=== PATIENT | female | born 1965 | race Two or more races ===

== ENCOUNTER 2024-07-29 02:20 | Emergency (ER) | payer MEDICAID, SELFPAY ==
[2024-07-29 02:27] VITALS: BP 133/74; PULSE 65; RESP 18; TEMP 36.5; O2SAT 97; BMI 26.4
--- NOTE | 2024-07-29 02:41 | PD.EDABDPN ---
ED Abdominal Pain RME/HPI General Chief Complaint: Abdominal Pain Stated complaint: EPIGASTRIC PAIN Time seen by provider: 07/29/24 02:31 Arrival date/time: 07/29/24 02:20 59-year-old female past medical history of cholecystectomy and gastritis presents emergency department complaining of epigastric burning pain and 1 episode of vomiting after eating sour cream last night. Patient denies any fever, chills, diarrhea, cough, shortness of breath, chest pain, or any other associated symptom. Source: patient Mode of arrival: ambulatory Limitations: no limitations Related Data Previous Rx's ?Medication ?Instructions ?Recorded pantoprazole 40 mg tablet,delayed 40 mg PO QDAY #30 tabs 05/29/24 release (Protonix) omeprazole 20 mg capsule,delayed 20 mg PO QDAY #30 caps 07/29/24 release ondansetron 4 mg disintegrating 4 mg PO Q8H PRN nausea and 07/29/24 tablet vomiting #10 tabs Allergies Allergy/AdvReac Type Severity Reaction Status Date / Time No Known Allergies Allergy Verified 05/29/24 05:33 Review of Systems Review of Systems Systems Reviewed: All systems reviewed, normal except as documented Constitutional Constitutional: Reports system reviewed and no additional complaints, except as documented, Denies body ache(s), Denies chills and Denies fever(s) Eyes Eyes: Reports system reviewed and no additional complaints, except as documented and Denies change in vision ENT Ears, Nose, Mouth, and Throat: Reports system reviewed and no additional complaints, except as documented, Denies disequilibrium, Denies dizziness, Denies sore throat and Denies vertigo Cardiovascular Cardiovascular: Reports system reviewed and no additional complaints, except as documented, Denies chest pain and Denies dyspnea Respiratory Respiratory: Reports system reviewed and no additional complaints, except as documented, Denies chest congestion, Denies cough and Denies dyspnea Gastrointestinal Gastrointestinal: Reports system reviewed and no additional complaints, except as documented, Reports abdominal pain, Reports nausea and Reports vomiting Musculoskeletal Musculoskeletal: Reports system reviewed and no additional complaints, except as documented, Denies abnormal gait and Denies arthralgias Integumentary/Breasts Skin/Breast: Reports system reviewed and no additional complaints, except as documented, Denies erythema, Denies rash and Denies wounds Neurologic Neurologic: Reports system reviewed and no additional complaints, except as documented, Denies abnormal gait, Denies disequilibrium, Denies dizziness and Denies vertigo Past Medical History Past Medical History NEUROLOGIC: Negative Neurological Disorders or Seizures CARDIAC: Positive Varicose Veins; Negative Cardiac Disorders, Congestive Heart Failure or Hypertension RESPIRATORY: Positive Pneumonia; Negative Chronic Obstructive Pulmonary Disease (COPD) or Asthma GASTROINTESTINAL: Positive Gastrointestinal Disorders and Gall Bladder Disease GENITOURINARY: Negative Genitourinary Disorders or Renal Disease REPRODUCTIVE: Positive Previous Pregnancies MUSCULOSKELETAL: Negative Musculoskeletal Disorders ENDOCRINE: Negative Endocrine Disorders, Diabetes Mellitus Type 1 or Diabetes Mellitus Type 2 HEMATOLOGIC: Positive Blood Disorders and Anemia; Negative Sickle Cell Disease OTHER HISTORY: Negative Hospitalization, Autoimmune Disease, Shingles, Blood Transfusions, Blood Transfusion Reaction, Anesthesia Reactions or Cancer Family History FAMILY HISTORY: Positive Family Gastrointestinal Problems and Family Surgery; Negative Family Psychiatric Problems, Family Respiratory Disorders, Family Cardiac Disorders, Family Cancer or Family Anesthesia Reaction Surgical History SURGICAL: Positive Tubal Ligation Social History SMOKING STATUS: Never smoker SECOND HAND EXPOSURE: No ED Exam General Limitations: Present no limitations General appearance: Present alert and in no apparent distress Head Head exam: Present atraumatic Eye Eye exam: Present normal appearance, PERRL and EOMI ENT ENT exam: Present normal exam, normal oropharynx and mucous membranes moist Neck Neck exam: Present normal inspection, full ROM and trachea midline Chest Chest inspection: Present normal inspection and symmetric chest wall rise Respiratory Respiratory exam: Present normal lung sounds bilaterally Cardiovascular Cardiovascular exam: Present regular rate, normal rhythm and normal heart sounds Abdominal Exam Abdominal exam: Present soft and normal bowel sounds; Absent distention, tenderness, guarding or tenderness at McBurney's Point Extremities Exam Extremities exam: Present normal inspection and full ROM Back Exam Back exam: Present normal inspection and full ROM Neurological Exam Neurological exam: Present alert, oriented X3 and CN II-XII intact Psychiatric Psychiatric exam: Present normal affect and normal mood Skin Skin exam: Present warm, dry, intact and normal color Course Quality Measures none Orders Category Date Time Status Famotidine [Pepcid] Med 07/29/24 02:40 Discontinued 20 mg PO X1 ONE Lidocaine 2% Viscous [Xylocaine 2% Viscous] Med 07/29/24 02:40 Discontinued 15 ml PO X1 ONE Ondansetron Odt [Zofran Odt] Med 07/29/24 03:22 Once 4 mg PO X1 ONE mg Hyd/Al Hyd/Skip Susp [Maalox Susp] Med 07/29/24 02:40 Discontinued 30 ml PO X1 ONE Vital Signs Vital signs: Vital Signs Temperature 97.7 F 07/29/24 02:27 Pulse Rate 65 07/29/24 02:27 Respiratory Rate 18 07/29/24 02:27 Blood Pressure 133/74 H 07/29/24 02:27 Pulse Oximetry (%) 97 07/29/24 02:27 Oxygen Delivery Method Room Air 07/29/24 02:27 97% room air within normal limits Abdominal Pain MDM MDM Narrative MDM Narrative:: 59-year-old female past medical history of cholecystectomy and gastritis presents emergency department complaining of epigastric burning pain and 1 episode of vomiting after eating sour cream last night. Patient denies any fever, chills, diarrhea, cough, shortness of breath, chest pain, or any other associated symptom. Patient's abdomen is soft and nontender. No adventitious lung sounds auscultation. Patient appears nontoxic and hemodynamically stable. Patient reports had only 1 episode of vomiting and reported symptoms improved after vomiting episode. Patient given GI cocktail and reported significant improvement in symptoms. Patient did not vomit during stay in the emergency room. Patient discharged home and instructed to follow-up with primary care provider in 24 to 48 hours and return immediately to emergency department for any worsening symptoms or as needed. Patient data External records reviewed:: [facility] previous records Clinical information provided by:: patient Social determinants that could affect healthcare access:: none Patient has the following chronic illnesses:: See chart How is presenting disease/condition affected by chronic disease/condition?: exacerbated by Evaluation data The following diagnostics were reviewed and interpreted by me:: other (specify) (N/A) Lab and/or radiology exams considered but not ordered:: N/A Interpretation Summary: N/A Medications / Prescriptions Medications or Prescriptions considered but not ordered:: Ordered Medication administrations:: Medication Administration History Ondansetron HCl (Ondansetron Odt 4 Mg Tabrap) 4 mg PO X1 ONE; Protocol Stop: 07/29/24 03:23 Discontinued Medications Al Hydrox/Mg Hydrox/Simethicone (Mg Hyd/Al Hyd/Skip (Maalox Reg) Susp 30 Ml Udc) 30 ml PO X1 ONE Stop: 07/29/24 02:41 Last Admin: 07/29/24 02:46 Dose: 30 ml Documented By: CVL Famotidine (Famotidine 20 Mg Tablet) 20 mg PO X1 ONE Stop: 07/29/24 02:41 Last Admin: 07/29/24 02:46 Dose: 20 mg Documented By: CVL Lidocaine HCl (Lidocaine Viscous 2% 15 Ml Udc) 15 ml PO X1 ONE Stop: 07/29/24 02:41 Last Admin: 07/29/24 02:46 Dose: 15 ml Documented By: CVL Given Consultations Consultation(s) initiated? (list below): No Diagnosis Differential diagnosis abdominal pain: abdominal pain, constipation, diverticulitis, gastroenteritis, pancreatitis and small bowel obstruction Most likely diagnosis given after review of the tests above:: Abdominal pain Admission Indicated Admission indicated?: not indicated Admission Request Was there a request for admission?: No Disposition Plan Disposition Plan: Discharge Discharge Attestation Discharge Attestation: The patient and all family members were given an opportunity to ask questions and understood the discharge instructions. Discharge instructions specifically effects, indications for sooner follow up or return to the emergency department, and the expected course of current diagnosis. Patient condition: Stable Discharge Plan Plan Patient Disposition: HOME (Self Care) Disposition Comment: Stable Prescriptions/Referrals Prescriptions/Med Rec: New ondansetron 4 mg tablet,disintegrating 4 mg PO Q8H PRN (Reason: nausea and vomiting) Qty: 10 0RF omeprazole 20 mg capsule,delayed release(DR/EC) 20 mg PO QDAY Qty: 30 0RF No Action pantoprazole [Protonix] 40 mg tablet,delayed release (DR/EC) 40 mg PO QDAY Qty: 30 0RF Problem List Clinical Impression: Abdominal pain Patient/Caregiver Discharge Instructions Discharge Activity: activity as tolerated Education Materials: Abdominal Pain, ED Abdominal Pain Unkn Cause Fem Additional Instructions: Take medication as prescribed. Follow-up with primary care provider in 24 to 48 hours and request H. pylori testing or referral to GI specialist if symptoms persist. Return to emergency department for any worsening symptoms or as needed. Print Language: Divehi Stand Alone Forms: Candi Award Info., Patient Portal Info Letter PA/AGENT CONTRACT CLERK Supervising Physician PA/AGENT CONTRACT CLERK Supervising Physician: Dr. Cooper
[2024-07-29] MEDS: FAMOTIDINE 20 MG TABLET PO (02:46)
[2024-07-29] MEDS: MG HYD/AL HYD/SIME (Maalox Reg) SUSP 30 ML UDC PO (02:46)
[2024-07-29] MEDS: LIDOCAINE VISCOUS 2% 15 ML UDC PO (02:46)
[2024-07-29] MEDS: ONDANSETRON ODT 4 MG TABRAP PO (03:33)
[2024-07-29 03:40] VITALS: RESP 18
== END 2024-07-29 03:40 | disposition home or self-care (01) ==
LOC: SERX 03:43
PROVIDERS: Emergency Provider Emergency Medicine; PCP Family Medicine
DX: R10.13 Epigastric pain (principal)
CPT/HCPCS: 99282; J3490; Q0162; A9270

== ENCOUNTER → 2024-11-03 | Outpatient (CLI) | payer MEDICAID, SELFPAY ==
--- NOTE | 2024-11-03 13:30 | XR_ITS ---
Examination: Breast ultrasound complete, bilateral Date and time of exam: November 03, 2024 1329 hrs. Indications: Left breast pain beginning 6 weeks ago, family history, sister secondary to breast cancer Technique: Real-time grayscale ultrasonographic imaging bilateral breasts, including all 4 quadrants as well as nipple retroareolar and axillary regions. Findings: Sonographic images right breast 7:00 cyst 3 x 3 mm Retroareolar cyst 7 x 5 mm No solid nodules Sonographic images left breast 6:00 oval mass circumscribed 5 x 3 mm Impression: BI-RADS Category 3: Probably benign findings Recommend 1 additional 6 month left breast sonogram follow-up to document stability of 6:00 nodule described above
--- NOTE | 2024-11-03 14:45 | XR_ITS ---
Examination: Diagnostic digital mammography, bilateral Computer aided detection 3-D breast Tomosynthesis, bilateral Date and time of exam: 12/01/2024, 140 Comparisons: 06/26/2019 Indications:Left breast pain and itchiness Technique: Nonmagnified MLO, CC views of the breasts to been obtained, reconstructed from 3-D Tomosynthesis images. R2 computer aided detection program utilized for evaluation of suspicious masses and/or abnormal calcifications. 3-D Tomosynthesis images obtained. Findings: The breasts are heterogeneously dense, which may obscure small masses. No evidence of abnormal masses or suspicious calcifications. Impression: BI-RADS category 1: Negative findings (within normal) Recommend 1 year follow-up mammogram
== END | disposition home or self-care (01) ==
LOC: CDIM 12:56
PROVIDERS: PCP Family Medicine; Referring Provider Physician Assistant Medical; Visit Provider Physician Assistant Medical
DX: R92.313 Mammographic fatty tissue density, bilateral breasts (principal); N63.25 Unspecified lump in the left breast, overlapping quadrants
CPT/HCPCS: 76641; 77062; 77066; G0279

== ENCOUNTER 2025-01-12 17:48 | Emergency (ER) | payer MEDICAID, SELFPAY ==
[2025-01-12 18:05] VITALS: BP 136/80; PULSE 66; RESP 18; TEMP 36.8; O2SAT 97; BMI 30.1
[2025-01-12] MEDS: ONDANSETRON ODT 4 MG TABRAP PO (18:51)
[2025-01-12] MEDS: FAMOTIDINE 20 MG TABLET 40 MG PO (18:51)
[2025-01-12] MEDS: MG HYD/AL HYD/SIME (Maalox Reg) SUSP 30 ML UDC PO (18:51)
--- NOTE | 2025-01-12 19:02 | EDNOTE_ITS ---
ED Abdominal Pain RME/HPI General Chief Complaint: Abdominal Pain Stated complaint: ABD PAIN Time seen by provider: 01/12/25 18:20 Arrival date/time: 01/12/25 17:48 59F with history of cholecystectmy, GERD, DM, and psych presents to ED with 1 day of epigastric pain and N/V. This started after patient drank some coffee. Patient denies CP and SOB. Limitations: no limitations Related Data Previous Rx's ?Medication ?Instructions ?Recorded pantoprazole 40 mg tablet,delayed 40 mg PO QDAY #30 ta bs 05/29/24 release (Protonix) omeprazole 20 mg capsule,delayed 20 mg PO QDAY #30 cap s 07/29/24 release ondansetron 4 mg disintegrating 4 mg PO Q8H PRN nausea and 07/29/24 tablet vomiting #10 tabs Allergies Allergy/AdvReac Type Severity Reaction Status Date / Time No Known Allergies Allergy Verified 01/12/25 17:51 Review of Systems Review of Systems Systems Reviewed: All systems reviewed, normal except as documented Constitutional Constitutional: Reports system reviewed and no additional complaints, except as documented, Denies fever(s) and Denies headache(s) ENT Ears, Nose, Mouth, and Throat: Denies disequilibrium and Denies headache(s) Cardiovascular Cardiovascular: Reports system reviewed and no additional complaints, except as documented, Denies chest pain and Denies dyspnea Respiratory Respiratory: Reports system reviewed and no additional complaints, except as documented, Denies cough and Denies dyspnea Gastrointestinal Gastrointestinal: Reports system reviewed and no additional complaints, except as documented, Reports as per HPI, Reports abdominal pain, Reports nausea and Reports vomiting Neurologic Neurologic: Reports system reviewed and no additional complaints, except as documented, Denies confusion, Denies disequilibrium and Denies headache(s) Psychiatric Psychiatric: Denies confusion Past Medical History Past Medical History NEUROLOGIC: Negative Neurological Disorders or Seizures CARDIAC: Positive Varicose Veins; Negative Cardiac Disorders, Congestive Heart Failure or Hypertension RESPIRATORY: Positive Pneumonia; Negative Chronic Obstructive Pulmonary Disease (COPD) or Asthma GASTROINTESTINAL: Positive Gastrointestinal Disorders and Gall Bladder Disease GENITOURINARY: Negative Genitourinary Disorders or Renal Disease REPRODUCTIVE: Positive Previous Pregnancies MUSCULOSKELETAL: Negative Musculoskeletal Disorders ENDOCRINE: Negative Endocrine Disorders, Diabetes Mellitus Type 1 or Diabetes Mellitus Type 2 HEMATOLOGIC: Positive Blood Disorders and Anemia; Negative Sickle Cell Disease OTHER HISTORY: Negative Hospitalization, Autoimmune Disease, Shingles, Blood Transfusions, Blood Transfusion Reaction, Anesthesia Reactions or Cancer Family History FAMILY HISTORY: Positive Family Gastrointestinal Problems and Family Surgery; Negative Family Psychiatric Problems, Family Respiratory Disorders, Family Cardiac Disorders, Family Cancer or Family Anesthesia Reaction Surgical History SURGICAL: Positive Tubal Ligation Social History SMOKING STATUS: Never smoker SECOND HAND EXPOSURE: No ED Exam General Limitations: Present no limitations General appearance: Present alert and in no apparent distress Head Head exam: Present atraumatic Eye Eye exam: Present normal appearance, PERRL and EOMI ENT ENT exam: Present normal exam, normal oropharynx and mucous membranes moist Neck Neck exam: Present normal inspection, full ROM and trachea midline Chest Chest inspection: Present normal inspection and symmetric chest wall rise Respiratory Respiratory exam: Present normal lung sounds bilaterally Cardiovascular Cardiovascular exam: Present regular rate, normal rhythm and normal heart sounds Abdominal Exam Abdominal exam: Present soft and normal bowel sounds Extremities Exam Extremities exam: Present normal inspection and full ROM Back Exam Back exam: Present normal inspection and full ROM Neurological Exam Neurological exam: Present alert, oriented X3 and CN II-XII intact Psychiatric Psychiatric exam: Present normal affect and normal mood Skin Skin exam: Present warm, dry, intact and normal color Course Quality Measures none Orders Category Date Time Status Famotidine [Pepcid] Med 01/12/25 18:20 Discontinued 40 mg PO X1 ONE Ondansetron Odt [Zofran Odt] Med 01/12/25 18:20 Discontinued 4 mg PO X1 ONE mg Hyd/Al Hyd/Skip Susp [Maalox Susp] Med 01/12/25 18:20 Discontinued 30 ml PO X1 ONE Vital Signs Vital signs: Vital Signs Temperature 98.2 F 01/12/25 18:05 Pulse Rate 66 01/12/25 18:05 Respiratory Rate 18 01/12/25 18:05 Blood Pressure 136/80 H 01/12/25 18:05 Pulse Oximetry (%) 97 01/12/25 18:05 Oxygen Delivery Method Room Air 01/12/25 18:05 O2 at 97% on RA and WNLs Abdominal Pain MDM MDM Narrative MDM Narrative:: 59F with history of cholecystectmy, GERD, DM, and psych presents to ED with 1 day of epigastric pain and N/V. This started after patient drank some coffee. Patient denies CP and SOB. Physical exam reveals no ab tenderness. Normal WOB. Patient is afebrile, calm and alert. GI cocktail improved symptoms. Patient data External records reviewed:: [facility] previous records Clinical information provided by:: patient Social determinants that could affect healthcare access:: mental health Patient has the following chronic illnesses:: cholecystectmy, GERD, DM, and psych How is presenting disease/condition affected by chronic disease/condition?: exacerbated by Evaluation data The following diagnostics were reviewed and interpreted by me:: other (specify) (none) Lab and/or radiology exams considered but not ordered:: not ordered Interpretation Summary: n/a Medications / Prescriptions Medications or Prescriptions considered but not ordered:: ordered Medication administrations:: Medication Administration History Discontinued Medications Al Hydrox/Mg Hydrox/Simethicone (Mg Hyd/Al Hyd/Skip (Maalox Reg) Susp 30 Ml Udc) 30 ml PO X1 ONE Stop: 01/12/25 18:21 Last Admin: 01/12/25 18:51 Dose: 30 ml Documented By: SHAUN Famotidine (Famotidine 20 Mg Tablet) 40 mg PO X1 ONE Stop: 01/12/25 18:21 Last Admin: 01/12/25 18:51 Dose: 40 mg Documented By: SHAUN Ondansetron HCl (Ondansetron Odt 4 Mg Tabrap) 4 mg PO X1 ONE; Protocol Stop: 01/12/25 18:21 Last Admin: 01/12/25 18:51 Dose: 4 mg Documented By: SHAUN above Consultations Consultation(s) initiated? (list below): No Diagnosis Differential diagnosis abdominal pain: abdominal pain, acute appendicitis, calculus of kidney, constipation, diverticulitis, endometriosis, gastroenteritis, pancreatitis, small bowel obstruction and other (gastritis) Most likely diagnosis given after review of the tests above:: gastritis Admission Indicated Admission indicated?: not indicated Admission Request Was there a request for admission?: No Disposition Plan Disposition Plan: Discharge Discharge Attestation Discharge Attestation: The patient and all family members were given an opportunity to ask questions and understood the discharge instructions. Discharge instructions specifically effects, indications for sooner follow up or return to the emergency department, and the expected course of current diagnosis. Patient condition: Stable Discharge Plan Plan Patient Disposition: HOME (Self Care) Discharge Disposition comment: Stable Prescriptions/Referrals Prescriptions/Med Rec: No Action pantoprazole [Protonix] 40 mg tablet,delayed release (DR/EC) 40 mg PO QDAY Qty: 30 0RF ondansetron 4 mg tablet,disintegrating 4 mg PO Q8H PRN (Reason: nausea and vomiting) Qty: 10 0RF omeprazole 20 mg capsule,delayed release(DR/EC) 20 mg PO QDAY Qty: 30 0RF Problem List Clinical Impression: Gastritis Patient/Caregiver Discharge Instructions Education Materials: ED Gastritis (Adult) Additional Instructions: Please follow-up with PCP within 24-48 hours and return immediately if symptoms worsen. Can try OTC TUMs and/or Pepcid. Print Language: Welsh Stand Alone Forms: Patient Portal Info Letter PA/PRN OCCUPATIONAL THERAPIST Supervising Physician PA/PRN OCCUPATIONAL THERAPIST Supervising Physician: Dr. Zamora
== END 2025-01-12 19:19 | disposition home or self-care (01) ==
LOC: SERX 19:22
PROVIDERS: Emergency Provider Emergency Medicine; PCP Nurse Practitioner Family
DX: K29.70 Gastritis, unspecified, without bleeding (principal); K21.9 Gastro-esophageal reflux disease without esophagitis; E11.9 Type 2 diabetes mellitus without complications
CPT/HCPCS: 99282; Q0162; A9270